=== PATIENT | male | born 1985 | race Two or more races ===

== ENCOUNTER 2023-06-17 14:15 | Emergency (ER) | payer OTHER ==
[~2023-06-17] VITALS: Ht 188 cm; Wt 81.6 kg
== END 2023-06-17 17:38 | disposition home or self-care (01) ==
LOC: ER 14:15
DX: M79.645 Pain in left finger(s) (principal); V88.9XXA Person injured in other specified (collision)(noncollision) transport accidents involving nonmotor vehicle, nontraffic, initial encounter; Y93.B9 Activity, other involving muscle strengthening exercises; Y92.89 Other specified places as the place of occurrence of the external cause; Y99.1 Military activity